=== PATIENT | female | born 1955 | race Caucasian/White ===

== ENCOUNTER 2021-01-06 10:10 | Outpatient (CLI) | payer MEDICARE, SELFPAY ==
--- NOTE | ~2021-01-06 | MM_ITS ---
EXAMINATION: MM screening [facility] w efren HISTORY: Screening mammogram TECHNIQUE: Craniocaudal and mediolateral oblique 3-D tomosynthesis images were obtained and synthetic 2-D images were generated. CAD analysis was submitted and interpreted. COMPARISON: 08/14/2019, 06/26/2018, 05/29/2018, 10/27/2016 BREAST PARENCHYMAL COMPOSITION: There are scattered areas of fibroglandular density. FINDINGS: An asymmetry is present in the left breast craniocaudal view which has an appearance simila r to the 2018 screening mammogram where it did not persist with spot compression on diagnostic mammog steve. There is no evidence of suspicious mass, calcification, or architectural distortion to suggest m alignancy in either breast. There has been no suspicious interval change. IMPRESSION: 1. No mammographic evidence of malignancy. 2. Recommend routine screening mammography in one year. BI-RADS Category 2: Benign finding(s). Reviewed, dictated and finalized at location A.
== END 2021-01-06 10:11 | disposition home or self-care (01) ==
LOC: ANHIMG 10:15
PROVIDERS: PCP Emergency Medicine; Visit Provider Emergency Medicine
DX: Z12.31 Encounter for screening mammogram for malignant neoplasm of breast (principal)
CPT/HCPCS: 77063; 77067

== ENCOUNTER 2022-02-15 14:29 | Outpatient (CLI) | payer MEDICARE, SELFPAY ==
--- NOTE | ~2022-02-15 | XR_ITS ---
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 COMPARISON: None available. FINDINGS: Decreased mineralization. No fracture or dislocation. No lytic or blastic lesion. Narrowin g and sclerosis at the radiocarpal and triscaphe joints. Likely degenerative cysts in the lunate and proximal scaphoid. No erosion or periosteal change. Soft tissues within normal limits. IMPRESSION: Osteopenia. Mild degenerative radiocarpal and triscaphe joint changes. Reviewed, dictated and finalized at location K. IMPRESSION: Osteopenia. Mild degenerative radiocarpal and triscaphe joint rossy up.
[2022-02-15 15:50] LABS: Iron 104 ug/dL (37-170)
[2022-02-15 16:09] LABS: Percent Iron Saturation 35 % (20-50)
[2022-02-17 11:48] LABS: Zinc 195 mcg/dL (60-130)
== END 2022-02-15 14:30 | disposition home or self-care (01) ==
PROVIDERS: PCP Emergency Medicine; Visit Provider Emergency Medicine
DX: R53.83 Other fatigue (principal); E03.9 Hypothyroidism, unspecified; M77.8 Other enthesopathies, not elsewhere classified; M85.832 Other specified disorders of bone density and structure, left forearm
CPT/HCPCS: 36415; 73100; 83540; 83550; 84443; 84630

== ENCOUNTER 2022-05-17 10:01 | Outpatient (CLI) | payer MEDICARE, SELFPAY ==
--- NOTE | ~2022-05-17 | MM_ITS ---
EXAMINATION: MM screening [facility] BI w efren HISTORY: Screening mammogram TECHNIQUE: Craniocaudal and mediolateral oblique 3-D tomosynthesis images were obtained and synthetic 2-D images were generated. CAD analysis was submitted and interpreted. COMPARISON: 01/06/2021, 08/14/2019, 06/26/2018, 05/29/2018 BREAST PARENCHYMAL COMPOSITION: There are scattered areas of fibroglandular density. FINDINGS: RIGHT BREAST: Again seen is an asymmetry in the middle third of the upper breast on the craniocaudal view. There appears to be surrounding architectural distortion. LEFT BREAST: There is no suspicious mass, calcification, or architectural distortion to suggest malig atul. There has been no significant interval change. IMPRESSION: 1. Left breast asymmetry with possible surrounding architectural distortion. 2. Additional mammographic views and possible breast ultrasound are recommended. BI-RADS Category 0: Incomplete: Needs additional imaging evaluation. Reviewed, dictated and finalized at location A. IMPRESSION: 1. Left breast asymmetry with possible surrounding architectural distortion. 2. Additional mammographic views and possible breast ultrasound are recommended . BI-RADS Category 0: Incomplete: Needs additional imaging evaluation.
== END 2022-05-17 10:02 | disposition home or self-care (01) ==
PROVIDERS: PCP Emergency Medicine; Visit Provider Emergency Medicine
DX: Z12.31 Encounter for screening mammogram for malignant neoplasm of breast (principal); R92.8 Other abnormal and inconclusive findings on diagnostic imaging of breast
CPT/HCPCS: 77063; 77067

== ENCOUNTER 2022-06-08 12:01 | Outpatient (CLI) | payer MEDICARE, SELFPAY ==
--- NOTE | ~2022-06-08 | MM_ITS ---
EXAMINATION: MM diagnostic [facility] LT w efren HISTORY: Follow-up left breast asymmetry TECHNIQUE: Additional 3-D tomosynthesis images of the left breast were performed and synthetic 2-D im ages were generated. CAD analysis was submitted and interpreted. COMPARISON: Comparison to multiple prior studies sequentially, with oldest reviewed study dated 09/2016. BREAST PARENCHYMAL COMPOSITION: Breast composed of scattered areas of fibroglandular density FINDINGS: There are no suspicious masses, calcifications or architectural distortion in the left feng st to suggest malignancy. The focal asymmetry seen on recent mammogram is not apparent on spot compre ssion views. IMPRESSION: 1. No mammographic evidence for malignancy in the left breast. 2. Routine yearly screening mammogram and regular clinical breast examination are recommended. BI-RADS Category 1: Negative Reviewed, dictated and finalized at location A. IMPRESSION: 1. No mammographic evidence for malignancy in the left breast. 2. Routine yearly screening mammogram and regular clinical breast examination a re recommended. BI-RADS Category 1: Negative
== END 2022-06-08 12:02 | disposition home or self-care (01) ==
LOC: ANHIMG 12:04
PROVIDERS: PCP Emergency Medicine; Visit Provider Emergency Medicine
DX: R92.8 Other abnormal and inconclusive findings on diagnostic imaging of breast (principal)
CPT/HCPCS: 77061; 77065; G0279

== ENCOUNTER 2024-05-15 13:27 | Outpatient (CLI) | payer MEDICARE, SELFPAY ==
--- NOTE | ~2024-05-15 | MM_ITS ---
EXAMINATION: MM screening [facility] BI w efren HISTORY: Screening mammogram TECHNIQUE: Craniocaudal and mediolateral oblique 3-D tomosynthesis images were obtained and synthetic 2-D images were generated. CAD analysis was submitted and interpreted. COMPARISON: 06/08/2022, 05/17/2022, 01/06/2021, 08/14/2019 BREAST PARENCHYMAL COMPOSITION:Not Dense. There are scattered areas of fibroglandular density. FINDINGS: No suspicious mass, calcification, or architectural distortion are identified in either andrew ast to suggest malignancy. There has been no suspicious interval change. IMPRESSION: No mammographic evidence of malignancy. Recommend routine screening mammography in one year. BI-RADS Category 1: Negative Reviewed, dictated and finalized at location .
== END 2024-05-15 13:28 | disposition home or self-care (01) ==
LOC: ANHIMG 13:28
PROVIDERS: PCP Emergency Medicine; Visit Provider Emergency Medicine
DX: Z12.31 Encounter for screening mammogram for malignant neoplasm of breast (principal)
CPT/HCPCS: 77063; 77067

== ENCOUNTER 2024-07-22 09:50 | Outpatient (CLI) | payer MEDICARE, SELFPAY ==
--- NOTE | ~2024-07-22 | DEXA_ITS ---
Bone Density Report Name: EUGENIO CARPENTER Age: 68 Sex: Female Ethnicity: White Date of : 1955 Indication: postmenopausal; screening for osteoporosis; height loss; Referring Provider: TIFFANIE HUANG Study: Bone densitometry was performed. Exam Date: July 22, 2024 Accession number: [id number] Bone Density: Region BMD T-score Z-score Classification AP Spine(L1-L4) 0.866 -1.6 0.5 Osteopenia Femoral Neck (Left) 0.550 -2.7 -0.9 Osteoporosis Total Hip (Left) 0.819 -1.0 0.5 Normal Femoral Neck (Right) 0.530 -2.9 -1.1 Osteoporosis Total Hip (Right) 0.849 -0.8 0.7 Normal Total Hip Mean 0.834 -0.9 0.6 Normal World Health Organization criteria for BMD impression classify patients as: Normal (T-score at or above -1.0), Osteopenia (T-score between -1.0 and -2.5), or Osteoporosis (T-score at or below -2.5). 10-year Fracture Risk: FRAX not reported because: Some T-score for Spine Total or Hip Total or Femoral Neck at or below -2.5 Clinical Information Provided by Patient: Has used the following medications: Vitamin D Patient maximum height was 64.0 Drinks caffeinated beverages Onset of menses at age 13 Number of children 4 Impression: The patient has osteoporosis, based on the Right Femoral Neck T-score. Discussion: INCREASED RISK OF FRACTURE. BONE DENSITY IS UNDESIRABLY LOW AT ONE OR MORE SKELETAL SITES, CONSISTENT WITH POSTMENOPAUSAL OSTEOPOROSIS. This patient's lowest T-score meets the World Health Organization's (WHO) criteria for osteoporosis at one or more sites (T-score -2.5 or below). In untreated patients, the risk of osteoporotic fracture increases approximately two-fold for each 1.0 SD decrease in T-score. Low bone density is not the only risk factor for fracture; also consider factors such as patient's age, frailty or poor health, risk of falling, risk of injury, previous osteoporotic fracture, family history of osteoporosis, cigarette smoking, low body weight, etc. Not everyone with low bone mineral density has osteoporosis; osteomalacia and other metabolic bone disorders should also be considered. Patients who have osteoporosis should be evaluated for specific diseases and conditions (secondary causes) that may cause or contribute to bone loss. The [place] [employer]ocrinologists (AACE) and National Osteoporosis Foundation (NOF) recommend pharmacologic intervention for all postmenopausal women whose T-score is in this range. The patient should follow a healthful lifestyle (good nutrition with adequate calcium and vitamin D, and appropriate weight-bearing exercise). Follow-Up: Consider a repeat BMD and Vertebral Fracture Assessment (VFA) exam in 2 years or sooner if medically necessary, to reassess this patient's status. Reported by: ROSEMARY on 07/22/2024 10:28:00 AM. Reviewed, dictated and finalized at location [place] ALEJANDRO
== END 2024-07-22 09:51 | disposition home or self-care (01) ==
LOC: ANHIMG 09:51
PROVIDERS: PCP Emergency Medicine; Visit Provider Emergency Medicine
DX: M85.88 Other specified disorders of bone density and structure, other site (principal); M81.0 Age-related osteoporosis without current pathological fracture; E55.9 Vitamin D deficiency, unspecified; Z78.0 Asymptomatic menopausal state
CPT/HCPCS: 77080

== ENCOUNTER 2025-04-03 09:43 | Outpatient (CLI) | payer MEDICARE, SELFPAY ==
--- NOTE | 2025-04-03 10:04 | EST_ITS ---
Patient Info Name: Yudelka Atkins Age: 69 years : 1955 Gender: Female Ht: 63 in Wt: 228 lbs BSA: 2.20 m2 Exam Date: 04/03/2025 10:04 AM Patient Status: O Admit Date: 04/03/2025 Exam Type: CA stress test treadmill A treadmill exercise stress test was performed. Staff Attending Provider: Enzo Montejo MD Exercise Technologist: Keely Tineo Exercise Physician: Michele De eLon DO Summary 1. 1. Negative Frandy exercise stress test for ischemic ST changes by ECG criteria. 2. 2. Reduced functional capacity, achieving 5.9 METs of workload. 3. 3. Baseline hypertension. 4. 4. Appropriate HR response to exercise. 5. 5. Appropriate HR recovery at 1 minute post exercise. 6. 6. No imaging with stress testing. 7. 7. Patient informed of the above results. Protocol: Frandy Stress ECG Details Stage: REST Duration (min): 1 min : 8 sec Speed (mph): 0.0 Grade (%): 0 HR (bpm): 63 SBP (mmHg): 141 DBP (mmHg): 74 METS: --- Stage: REST Duration (min): 7 min : 50 sec Speed (mph): 0.0 Grade (%): 0 HR (bpm): 78 SBP (mmHg): 141 DBP (mmHg): 74 METS: --- Stage: STAGE 1 Duration (min): 1 min : 0 sec Speed (mph): 1.7 Grade (%): 10 HR (bpm): 107 SBP (mmHg): 141 DBP (mmHg): 74 METS: --- Stage: STAGE 1 Duration (min): 2 min : 0 sec Speed (mph): 1.7 Grade (%): 10 HR (bpm): 120 SBP (mmHg): 141 DBP (mmHg): 74 METS: --- Stage: STAGE 1 Duration (min): 3 min : 0 sec Speed (mph): 1.7 Grade (%): 10 HR (bpm): 129 SBP (mmHg): 184 DBP (mmHg): 109 METS: --- Stage: STAGE 2 Duration (min): 0 min : 43 sec Speed (mph): 2.5 Grade (%): 12 HR (bpm): 139 SBP (mmHg): 184 DBP (mmHg): 109 METS: --- Stage: RECOVERY Duration (min): 0 min : 16 sec Speed (mph): 1.5 Grade (%): 0 HR (bpm): 136 SBP (mmHg): 184 DBP (mmHg): 109 METS: --- Stage: RECOVERY Duration (min): 1 min : 16 sec Speed (mph): 0.0 Grade (%): 0 HR (bpm): 105 SBP (mmHg): 184 DBP (mmHg): 109 METS: --- Stage: RECOVERY Duration (min): 2 min : 16 sec Speed (mph): 0.0 Grade (%): 0 HR (bpm): 84 SBP (mmHg): 186 DBP (mmHg): 81 METS: --- Stage: RECOVERY Duration (min): 3 min : 16 sec Speed (mph): 0.0 Grade (%): 0 HR (bpm): 73 SBP (mmHg): 153 DBP (mmHg): 92 METS: --- Stage: RECOVERY Duration (min): 4 min : 16 sec Speed (mph): 0.0 Grade (%): 0 HR (bpm): 74 SBP (mmHg): 153 DBP (mmHg): 92 METS: --- Stage: RECOVERY Duration (min): 5 min : 16 sec Speed (mph): 0.0 Grade (%): 0 HR (bpm): 70 SBP (mmHg): 159 DBP (mmHg): 89 METS: --- Stage: RECOVERY Duration (min): 6 min : 16 sec Speed (mph): 0.0 Grade (%): 0 HR (bpm): 69 SBP (mmHg): 159 DBP (mmHg): 89 METS: --- Stage: RECOVERY Duration (min): 7 min : 1 sec Speed (mph): 0.0 Grade (%): 0 HR (bpm): 64 SBP (mmHg): 149 DBP (mmHg): 88 METS: --- Rest HR: 78 bpm Peak HR: 139 bpm Rest Sys BP: 141 mmHg Peak Sys BP: 186 mmHg Max Pred HR: 150 bpm % Max Pred HR: 93 % Target HR: 128 bpm Max RPP: 25,854 bpm*mmHg Morales Score: 0 Termination Reason: Reached target heart rate or workload Cardiac Symptoms: Shortness of breath Max ST Seg Deviation: 0.70 mm Total Time: 3 min : 43 sec Rest Ortega BP: 74 mmHg Peak Ortega BP: 81 mmHg Angina Score: None Total METS: 5.9 Resting ECG Sinus rhythm. Stress ECG No ST changes. Arrhythmias None. Report Signatures
== END 2025-04-03 09:44 | disposition home or self-care (01) ==
LOC: ANHCARD 09:45
PROVIDERS: Visit Provider Emergency Medicine
DX: R06.00 Dyspnea, unspecified (principal); R00.2 Palpitations
CPT/HCPCS: 93017